=== PATIENT | male | born 1950 | race Caucasian/White ===

== ENCOUNTER 2018-03-25 07:52 | Emergency (ER) | payer MEDICARE ==
--- NOTE | 2018-03-25 08:26 | ER Document Report ---
ED GI/ - General Mode of Arrival: Ambulatory Information source: Patient TRAVEL OUTSIDE OF THE [place] IN LAST 30 DAYS: No - General Chief Complaint: Inability to Void Stated Complaint: UNABLE TO VOID Time Seen by Provider: 03/25/18 08:25 Notes: Patient is a 67-year-old male who presents to the emergency department today with complaints of an inability to void. Patient is visiting here from [place]. Patient states he usually uses "speedy caths" to self catheterizes at home however he has run out of them. Patient states his urologist sent him some that there were the "wrong kind". Patient has a history of BPH. Patient states his symptoms today are exactly the same as his urinary retention in the past. (MARIUM QUINONEZ) - Related Data Allergies/Adverse Reactions: No Known Allergies Allergy (Verified 03/25/18 07:53) Past Medical History - General Information source: Patient - Social History Smoking Status: Never Smoker Chew tobacco use (# tins/day): No Frequency of alcohol use: Social Lives with: Family Family History: Reviewed & Not Pertinent Patient has suicidal ideation: No Patient has homicidal ideation: No - Past Medical History Cardiac Medical History: Reports: Hx Hypertension Endocrine Medical History: Reports: Hx Diabetes Mellitus Type 2 Past Surgical History: Reports: Hx Cholecystectomy Review of Systems - Review of Systems Constitutional: No symptoms reported EENT: No symptoms reported Cardiovascular: No symptoms reported Respiratory: No symptoms reported Gastrointestinal: No symptoms reported Genitourinary: See HPI, Retention. denies: Dysuria Male Genitourinary: No symptoms reported Musculoskeletal: No symptoms reported Skin: No symptoms reported Hematologic/Lymphatic: No symptoms reported Neurological/Psychological: No symptoms reported -: Yes All other systems reviewed and negative Physical Exam - Vital signs Vitals: Temp Pulse Resp BP Pulse Ox 97.9 F 102 H 16 164/84 H 97 03/25/18 07:55 03/25/18 07:55 03/25/18 07:55 03/25/18 07:55 03/25/18 07:55 - Notes Notes: Physical Exam: General: Alert, appears mildly uncomfortable. HEENT: Normocephalic. Atraumatic. PERRLA. Extraocular movements intact. Oropharynx clear. Neck: Supple. Respiratory: No respiratory distress. Abdominal: No distension. Palpable firmness consistent with full bladder. Extremities: Moves all four extremities. Neurological: Normal cognition. AAOx4. Normal speech. Psychological: Normal affect. Normal Mood. Skin: Warm. Dry. Normal color. (MARIUM QUINONEZ) Course - Re-evaluation Re-evalutation: 03/25/18 11:33 Straight cath performed by nursing staff approximately 700 cc of urine was expressed. Patient was able to drink several glasses of water and void without difficulty. He will be discharged at this time with return precautions provided. (RUFINA YUSUF) - Vital Signs Vital signs: Temp Pulse Resp BP Pulse Ox 97.8 F 91 20 150/84 H 100 03/25/18 11:35 03/25/18 11:35 03/25/18 11:35 03/25/18 11:35 03/25/18 11:35 Discharge - Discharge Clinical Impression: Urinary retention due to benign prostatic hyperplasia Condition: Good Disposition: HOME, SELF-CARE Instructions: Urinary Retention ([facility]) Scribe Attestation: 03/25/18 15:25 I personally performed the services described documentation, reviewed and edited the documentation which was dictated to describe my presence, and it accurately records my words and actions. (RUFINA UYSUF) Scribe Documentation - Scribe Written by Scribe:: Marium Quinonez, Marguerite, 03/25/2018 1016 acting as scribe for :: Gaston
[2018-03-25 11:38] VITALS: BP 150/84
== END 2018-03-25 11:40 | disposition home or self-care (01) ==
LOC: ER 07:52
DX: R33.9 Retention of urine, unspecified (principal); N40.1 Benign prostatic hyperplasia with lower urinary tract symptoms; I10 Essential (primary) hypertension; E11.9 Type 2 diabetes mellitus without complications; Z90.49 Acquired absence of other specified parts of digestive tract
CPT/HCPCS: 51701; 99283